=== PATIENT | male | born 1950 | race Caucasian/White ===

== ENCOUNTER 2024-11-07 06:30 | Outpatient (RCR) | payer MEDICARE, SELFPAY | END 2024-12-06 23:59 | disposition home or self-care (01) | LOC: TPT 06:30 | PROVIDERS: Visit Provider Internal Medicine | DX: R26.81 Unsteadiness on feet (principal); R53.1 Weakness; M19.90 Unspecified osteoarthritis, unspecified site | CPT/HCPCS: 97110; 97162; 97530 ==

== ENCOUNTER 2025-01-05 07:56 | Outpatient (RCR) | payer MEDICARE, SELFPAY | END 2025-01-06 23:59 | disposition home or self-care (01) | LOC: TPT 07:56 | PROVIDERS: Visit Provider Internal Medicine | DX: R26.81 Unsteadiness on feet (principal); R53.1 Weakness; M19.90 Unspecified osteoarthritis, unspecified site | CPT/HCPCS: 97110; 97530 ==

== ENCOUNTER 2025-01-12 08:22 | Outpatient (RCR) | payer MEDICARE, SELFPAY | END 2025-01-17 09:10 | disposition home or self-care (01) | LOC: TPT 08:22 | PROVIDERS: Visit Provider Internal Medicine | DX: R26.81 Unsteadiness on feet (principal); R53.1 Weakness; M19.90 Unspecified osteoarthritis, unspecified site | CPT/HCPCS: 97110; 97530 ==